=== PATIENT | male | born 1965 | race Hispanic/Latino ===

== ENCOUNTER 2016-06-24 06:07 | Emergency (ER) | payer BC ==
[2016-06-24 06:19] VITALS: BP 144/82; PULSE 67; RESP 20; TEMP 97.5; O2SAT 99
[2016-06-24] MEDS ORDERED: RABIES VACCINE 2.5 U PDR IM ONE (06:37)
--- NOTE | 2016-06-24 06:46 | C.PDOC ---
History Of Present Illness 50 year old male pt returns to the ED for his second scheduled rabies shot for a cat bite that occurred 3 days ago. Pt notes no complaints. Time Seen by Provider: 06/24/16 06:36 Chief Complaint (Nursing): Bite History Per: Patient History/Exam Limitations: no limitations Onset/Duration Of Symptoms: Days (3 ) Location Of Injury: Right: Thigh Past Medical History Reviewed: Historical Data, Nursing Documentation, Vital Signs Vital Signs: Last Vital Signs Temp 97.5 F L 06/24/16 06:15 Pulse 67 06/24/16 06:15 Resp 20 06/24/16 06:15 BP 144/82 06/24/16 06:15 Pulse Ox 99 06/24/16 06:54 - Medical History PMH: Anxiety, HTN Family History: States: Unknown Family Hx - Social History Hx Tobacco Use: No Hx Alcohol Use: No Hx Substance Use: No - Immunization History Hx Tetanus Toxoid Vaccination: No Hx Influenza Vaccination: No Hx Pneumococcal Vaccination: No Review Of Systems Constitutional: Negative for: Fever Skin: Positive for: Other (Abrasion from bite wound) Physical Exam - Physical Exam Appears: Non-toxic Skin: Warm, Dry Eye(s): bilateral: Normal Inspection, PERRL Ear(s): Bilateral: Normal Extremity: Normal ROM, No Tenderness, Other (Healing abrasion to the right thigh ) Extremity: Right: Other (No erythema or warmth on right anterior thigh) ED Course And Treatment O2 Sat by Pulse Oximetry: 99 Progress Note: Pt is scheduled to return in 7 days and 14 days respectively for 2 additional rabies vaccine. Disposition - Disposition Disposition: HOME/ ROUTINE Disposition Time: 06:57 Condition: STABLE Additional Instructions: Please follow previously given Rabies schedule- Next vaccine on 06/28 then 07/05 Instructions: Rabies Vaccine (By injection) - Clinical Impression Clinical Impression: Need for rabies vaccination - Scribe Statement The provider has reviewed the documentation as recorded by the Scribe Dolly Gregory All medical record entries made by the Sheibe were at my direction and personally dictated by me. I have reviewed the chart and agree that the record accurately reflects my personal performance of the history, physical exam, medical decision making, and the department course for this patient. I have also personally directed, reviewed, and agree with the discharge instructions and disposition.
== END 2016-06-24 07:12 | disposition home or self-care (01) ==
LOC: C.ER 06:07
DX: Z23 Encounter for immunization (principal)

== ENCOUNTER 2016-06-28 05:30 | Emergency (ER) | payer BC ==
[2016-06-28 05:39] VITALS: BP 135/86; PULSE 65; RESP 14; TEMP 97.3; O2SAT 98
[2016-06-28] MEDS ORDERED: RABIES VACCINE 2.5 U PDR IM ONE (05:42)
--- NOTE | 2016-06-28 05:48 | C.PDOC ---
History Of Present Illness 50 yo male, here for 3rd vaccine of rabies. no other complaints Time Seen by Provider: 06/28/16 05:32 Chief Complaint (Nursing): Rabies Vaccine Series Past Medical History Reviewed: Historical Data, Nursing Documentation, Vital Signs Vital Signs: Last Vital Signs Temp 97.3 F L 06/28/16 05:36 Pulse 65 06/28/16 05:36 Resp 14 06/28/16 05:36 BP 135/86 06/28/16 05:36 Pulse Ox 98 06/28/16 05:36 - Medical History PMH: Anxiety, HTN Family History: States: Unknown Family Hx - Social History Hx Tobacco Use: No Hx Alcohol Use: No Hx Substance Use: No - Immunization History Hx Tetanus Toxoid Vaccination: No Hx Influenza Vaccination: No Hx Pneumococcal Vaccination: No Review Of Systems Except As Marked, All Systems Reviewed And Found Negative. Physical Exam - Physical Exam Appears: Well, No Acute Distress Skin: Normal Color, Warm, Dry Eye(s): bilateral: Normal Inspection, PERRL, EOMI Nose: Normal Throat: Normal Neck: Normal Cardiovascular: Rhythm Regular Respiratory: Normal Breath Sounds Gastrointestinal/Abdominal: Normal Exam Back: Normal Inspection Extremity: Normal ROM ED Course And Treatment O2 Sat by Pulse Oximetry: 98 Medical Decision Making Medical Decision Makinrd vaccine. no other complaints Disposition - Disposition Disposition: HOME/ ROUTINE Disposition Time: 05:47 Condition: STABLE Additional Instructions: please follow up with your doctor. return to er with worsening symptoms or concerns. return in 7 days for last vaccine Instructions: Rabies Vaccine (By injection) - Clinical Impression Clinical Impression: Rabies vaccination
== END 2016-06-28 06:20 | disposition home or self-care (01) ==
LOC: C.ER 05:30
DX: Z23 Encounter for immunization (principal)

== ENCOUNTER 2016-07-05 05:35 | Emergency (ER) | payer BC ==
[2016-07-05 05:45] VITALS: BP 147/86; PULSE 58; RESP 18; TEMP 97.5; O2SAT 100
--- NOTE | 2016-07-05 05:52 | C.PDOC ---
History Of Present Illness 50 year old patient, with a past medical history of hypertension and anxiety, presents to the ED requesting his last rabies vaccination. Patient is s/p cat bite from 06/21/16. Patient has no complaints at this time and refuses an evaluation. He reports the wound has completed healed. Time Seen by Provider: 07/05/16 05:45 Chief Complaint (Nursing): Rabies Vaccine Series History Per: Patient History/Exam Limitations: no limitations Onset/Duration Of Symptoms: Other Severity: None Pain Scale Rating Of: 0 Reports Recently: Seen In ED Recent travel outside of the [place]: No Additional History Per: Prior Records Past Medical History Reviewed: Historical Data, Nursing Documentation, Vital Signs Vital Signs: Last Vital Signs Temp 97.5 F L 07/05/16 05:41 Pulse 58 L 07/05/16 05:41 Resp 18 07/05/16 05:41 BP 147/86 07/05/16 05:41 Pulse Ox 100 07/05/16 05:59 - Medical History PMH: Anxiety, HTN Family History: States: Unknown Family Hx - Social History Hx Tobacco Use: No Hx Alcohol Use: No Hx Substance Use: No - Immunization History Hx Tetanus Toxoid Vaccination: No Hx Influenza Vaccination: No Hx Pneumococcal Vaccination: No Review Of Systems Except As Marked, All Systems Reviewed And Found Negative. Constitutional: Negative for: Fever Skin: Negative for: Lesions Physical Exam - Physical Exam Appears: Non-toxic, No Acute Distress Skin: Warm, Dry, No Other (lesions) Eye(s): bilateral: Normal Inspection Neurological/Psych: Oriented x3, Normal Speech, Normal Cognition Gait: Steady ED Course And Treatment O2 Sat by Pulse Oximetry: 100 (RA) Pulse Ox Interpretation: Normal Disposition - Disposition Referrals: [facility] [Outside] Disposition: HOME/ ROUTINE Disposition Time: 06:06 Condition: STABLE Forms: General Discharge Instructions - Clinical Impression Clinical Impression: Rabies vaccination - 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 - Scribe Statement The provider has reviewed the documentation as recorded by the Scribe Ira Gavin All medical record entries made by the Scribe were at my direction and personally dictated by me. I have reviewed the chart and agree that the record accurately reflects my personal performance of the history, physical exam, medical decision making, and the department course for this patient. I have also personally directed, reviewed, and agree with the discharge instructions and disposition.
[2016-07-05] MEDS ORDERED: RABIES VACCINE 2.5 U PDR IM ONE (05:57)
== END 2016-07-05 06:17 | disposition home or self-care (01) ==
LOC: C.ER 05:35
DX: Z29.14 Encounter for prophylactic rabies immune globulin (principal)

== ENCOUNTER 2018-03-15 13:28 | Emergency (ER) | payer BC ==
[2018-03-15 13:40] VITALS: BP 132/74; PULSE 67; RESP 18; TEMP 98.5; O2SAT 98
--- NOTE | 2018-03-15 14:31 | C.PDOC ---
History Of Present Illness 52 y/o male presents to ED with c/o localized right lower abdominal pain intermittently since november 2017 worse today associated with lower back pain and testicular pain. Patient states abdominal pain started as pressure pain and today feels like burning. Patient denies fever, chills, vomiting, diarrhea, dysuria, hematuria, bowel/bladder incontinence, penile discharge or any other complaints at this time. Time Seen by Provider: 03/15/18 14:04 Chief Complaint (Nursing): Abdominal Pain History Per: Patient History/Exam Limitations: no limitations Onset/Duration Of Symptoms: Days Current Symptoms Are (Timing): Still Present Location Of Pain/Discomfort: RLQ Past Medical History Reviewed: Historical Data, Nursing Documentation, Vital Signs Vital Signs: Last Vital Signs Temp 98.5 F 03/15/18 13:37 Pulse 67 03/15/18 13:37 Resp 18 03/15/18 13:37 BP 132/74 03/15/18 13:37 Pulse Ox 98 03/15/18 13:37 - Medical History PMH: Anxiety, HTN Surgical History: No Surg Hx Family History: States: No Known Family Hx - Social History Hx Tobacco Use: No Hx Alcohol Use: No Hx Substance Use: No - Immunization History Hx Tetanus Toxoid Vaccination: No Hx Influenza Vaccination: No Hx Pneumococcal Vaccination: No Review Of Systems Except As Marked, All Systems Reviewed And Found Negative. Constitutional: Negative for: Fever, Chills Gastrointestinal: Positive for: Abdominal Pain. Negative for: Nausea, Vomiting, Diarrhea Genitourinary: Positive for: Other (Testicular pain). Negative for: Dysuria, Penile Discharge Musculoskeletal: Positive for: Back Pain Physical Exam - Physical Exam Additional Physical Exam Comments: Gen: VS reviewed, alert, well developed, well nourished, nontoxic, mild distress Eye: EOMI, PERRL Neck: no JVD, supple, no adenopathy CV: regular rate, regular rhythm, no rubs,no murmur, S1, S2 Pulm: no distress, clear to auscultation, no wheeze, no rhonchi, breath sounds equal, no rales Abd: soft, Suprapubic tenderness no guarding, no rebound, no rigidity : No testicular swelling or tenderness. No inguinal tenderness or swelling. Ext: no edema Skin: good color, no rash, no cyanosis Psych: responds appropriately to questions, normal affect Neuro: oriented x3, CN2-12 intact grossly, motor intact, sensation intact ED Course And Treatment O2 Sat by Pulse Oximetry: 98 (RA) Pulse Ox Interpretation: Normal Medical Decision Making Medical Decision Making: patient was sen for right groin pain which is exacerbated with body position and has been intermittent, localized to the right suprapubic area without focal physical exam findings. patient states he had a recent CT a/p which did not show acute pathology for intraabdominal pathology. patient states there was a report of lumbar HNP and he occasionally experiences low back pain. it was discussed with the patient that the intermittent pain he is experiences is likely radicular pain and he should follow up with his pcp. there are no acute neuro deficits, no fever, no trauma, no hx cancer to warrant a serious etiology of pain at this time. patient understood and agreed and will make the appropriate follow up. Disposition - Disposition Disposition: HOME/ ROUTINE Disposition Time: 14:31 Condition: STABLE Additional Instructions: Return for any new or worsening symptoms especially numbness in the groin area, difficulty moving bowels or passing urine, severe intractable pain. Follow up with your primary care doctor for further evaluation which may include a MRI of your low back. ALEYDA MIRANDA, thank you for letting us take care of you today. Your provider was Dr. Mihir Mancia and you were treated for right groin pain. The emergency medical care you received today was directed at your acute symptoms. If you were prescribed any medication, please fill it and take as directed. It may take several days for your symptoms to resolve. Return to the Emergency Department if your symptoms worsen, do not improve, or if you have any other problems. Please contact your doctor or call one of the physicians/clinics you have been referred to that are listed on the Patient Visit Information form that is included in your discharge packet. Bring any paperwork you were given at discharge with you along with any medications you are taking to your follow up visit. Our treatment cannot replace ongoing medical care by a primary care provider outside of the emergency department. Thank you for allowing the [facility] team to be part of your care today. If you had an X-Ray or CT scan: A Radiologist will review the ED reading if any change in treatment is needed we will contact you. If you had a blood, urine, or wound culture: It will take several days for the results, if any change in treatment is needed we will contact you. If you had an STI test: It will take 48 hours for the results. Please call after 1 week if you have not heard back. Prescriptions: Naproxen [Naprosyn] 500 mg PO BID #60 tablet Instructions: Radiculopathy (DC) Forms: [facility] (Italian), Work Excuse - Clinical Impression Clinical Impression: Radiculopathy - Scribe Statement The provider has reviewed the documentation as recorded by the Kathleen Ni All medical record entries made by the Kathleen were at my direction and personally dictated by me. I have reviewed the chart and agree that the record accurately reflects my personal performance of the history, physical exam, medical decision making, and the department course for this patient. I have also personally directed, reviewed, and agree with the discharge instructions and disposition.
== END 2018-03-15 14:47 | disposition home or self-care (01) ==
LOC: C.ER 13:28
DX: M54.10 Radiculopathy, site unspecified (principal); I10 Essential (primary) hypertension